=== PATIENT | male | born 1985 | race Caucasian/White ===

== ENCOUNTER → 2019-06-23 | Outpatient (CLI) | payer OTHER ==
[~2019-06-23] MED LIST: ASPI325B PO; CYCL10 PO; DIAZ10 PO; HYDACE5 PO; IBUP200; NAPR500 PO; PROM25 PO; RXLORA1 PO; SUMA25 PO
[2019-06-25 12:07] LABS: QUANTIFERON MITOGEN VALUE 5.59 IU/mL (.); QUANTIFERON NIL VALUE 0.09 IU/mL (.); QUANTIFERON TB1 AG VALUE 0.12 IU/mL (.); QUANTIFERON-TB GOLD PLUS Negative (Negative)
== END | disposition home or self-care (01) ==
LOC: LAB 15:21 → LAB SHORT 15:21 → LAB FUT 06-23 13:30 → EDSTATUS 06-23 13:30
PROVIDERS: Family Medicine
DX: Z11.1 Encounter for screening for respiratory tuberculosis (principal)
CPT/HCPCS: 36415; 86480

== ENCOUNTER 2024-08-26 11:31 | Emergency (ER) | payer OTHER ==
[~2024-08-26] VITALS: Ht 177.8 cm; Wt 81.7 kg
[2024-08-26 11:37] VITALS: BP 138/102
[2024-08-26] MEDS ORDERED: Methadone HCL 10 MG TAB PO ONE (12:45)
== END 2024-08-26 12:55 | disposition home or self-care (01) ==
LOC: ER 11:31
DX: Z76.89 Persons encountering health services in other specified circumstances (principal); F11.91 Opioid use, unspecified, in remission; Z79.82 Long term (current) use of aspirin; Z79.899 Other long term (current) drug therapy
CPT/HCPCS: 99281; A9270

== ENCOUNTER 2024-12-01 15:35 | Emergency (ER) | payer OTHER ==
[~2024-12-01] VITALS: Ht 177.8 cm; Wt 86.2 kg
[2024-12-01 15:43] VITALS: BP 141/101
[2024-12-01] MEDS ORDERED: Methadone HCL 10 MG TAB PO ONE (16:20)
== END 2024-12-01 16:37 | disposition home or self-care (01) ==
LOC: ER 15:35
DX: Z76.89 Persons encountering health services in other specified circumstances (principal); F11.20 Opioid dependence, uncomplicated; G43.909 Migraine, unspecified, not intractable, without status migrainosus; Z79.82 Long term (current) use of aspirin; Z79.1 Long term (current) use of non-steroidal anti-inflammatories (NSAID); Z79.899 Other long term (current) drug therapy
CPT/HCPCS: 99281; A9270